=== PATIENT | female | born 1950 | race Caucasian/White ===

== ENCOUNTER → 2020-06-14 | Outpatient (CLI) | payer OTHER ==
[~2020-06-14] MED LIST: ALOE VERA1 EACH PO; CALCIUM CITRAT1 EAC9 PO; CALCIUM CITRAT250 MG PO; CASCARA SAGRAD450 MG PO; COUMADIN 5 MG TA5 M1 PO; FOLIC ACID0.4 MG PO; L-LYSINE500 M1; LASIX 80 MG TAB80 M1 PO; LEVOTHYROXIN0.125 M1 PO; LOVENOX SQ; METHOTREXATE 22.5 MG PO; MOBIC15 MG PO; PREDNISONE 10 M10 M1 PO; REMICADE 1100 MG/VIA; SENOKOT-S1 TA1 PO; SKELAXIN 800 M800 MG PO; TRIAMTERENE-HC1 EAC3 PO; VITAMIN D 5050000 I1 PO
== END ==
LOC: SJCVCIMAG 09:42
PROVIDERS: ATTEND Family Medicine
DX: I73.9 Peripheral vascular disease, unspecified (principal); M79.661 Pain in right lower leg; M79.662 Pain in left lower leg